=== PATIENT | female | born 1950 | race Asian ===

== ENCOUNTER 2019-02-25 21:02 | Emergency (ER) | payer MEDICAID ==
[~2019-02-25] VITALS: Ht 160 cm; Wt 68.0 kg
[2019-02-26 08:42] VITALS: BP 173/55
== END 2019-02-26 09:41 | disposition home or self-care (01) ==
LOC: ER 21:07
DX: S01.112A Laceration without foreign body of left eyelid and periocular area, initial encounter (principal); W18.39XA Other fall on same level, initial encounter; Y93.01 Activity, walking, marching and hiking; Y92.89 Other specified places as the place of occurrence of the external cause; Y99.8 Other external cause status
CPT/HCPCS: 12013; 70450